=== PATIENT | female | born 1985 | race Caucasian/White ===

== ENCOUNTER 2016-09-26 12:47 | Emergency (ER) ==
[2016-09-26 13:09] VITALS: BP 137/80; TEMP 97.8; BMI 47.4
--- NOTE | 2016-09-26 13:32 | ED.PDOC ---
General ED Provider: Dr. DIYA SUN JR Chief Complaint: Foot Pain/Injury Stated Complaint: fell getting out of hot tub around [place], hurting right foot, just keeps getting worse. now unable to put much pressure on it while walking [End]09/07/16 97.8 108 20 98% 137/80 7/10 Time Seen by Physician: 13:31 Mode of Arrival: Walk-In Information Source: Patient Exam Limitations: No limitations Primary Care Provider: DEDRICK MARTINEZ Nursing and Triage Documentation Reviewed and Agree: No Review of Systems - Review Of Systems Constitutional: Reports: No symptoms Eyes: Reports: No symptoms Ears, Nose, Mouth, Throat: Reports: No symptoms Respiratory: Reports: No symptoms Cardiac: Reports: No symptoms GI: Reports: No symptoms : Reports: No symptoms Musculoskeletal: Reports: Joint pain (right talar tenderness) Skin: Reports: No symptoms Neurological: Reports: No symptoms Endocrine: Reports: No symptoms Hematologic/Lymphatic: Reports: No symptoms All Other Systems: Other Past Medical History - Past Medical History Endocrine: Reports: None Cardiovascular: Reports: None Respiratory: Reports: Asthma Hematological: Reports: None Gastrointestinal: Reports: None Genitourinary: Reports: None Neuro/Psych: Reports: None Musculoskeletal: Reports: None Cancer: Reports: None Last Menstrual Period: 3 weeks ago - Surgical History General Surgical History: Reports: Tubal ligation, Cholecystectomy, Hernia Repair - Family History Family History: Reports: Unknown - Social History Smoking Status: Former smoker Hx Substance Use: No Alcohol Screening: None Physical Exam - Physical Exam Appearance: Well-appearing, Obese Pain Distress: Moderate Neck: Supple Respiratory: Airway patent Musculoskeletal: No calf tenderness (tender over talus medially) Skin: Warm, Dry, Normal color Neurological: Sensation intact, Motor intact, Reflexes intact, Cranial nerves intact, Alert, Oriented Psychiatric: Affect appropriate, Mood appropriate Critical Care Note - Critical Care Note Total Time (mins): 0 Course - Course Orders, Labs, Meds: Orders Category Date Time Status FOOT, RIGHT 3 VIEWS Stat RADS 09/26/16 13:32 Completed Vital Signs: Temp Pulse Resp BP Pulse Ox 09/26/16 12:47 97.8 F 108 H 20 137/80 98 Departure - Departure Time of Disposition: 14:57 Disposition: HOME SELF-CARE Discharge Problem: Injury of foot Instructions: Foot Sprain (ED) Condition: Good Pt referred to PMD for follow-up: Yes Additional Instructions: no weight on right foot for three days take [place] for pain try two then one four times a day only as needed may use crutches recheck PMD next week if still painful would obtain MRI and orthopedic referral Prescriptions: Hydrocodone Bit/Acetaminophen [[place] 5-325] 1 - 2 tab PO Q6HR PRN #12 tablet PRN Reason: pain Allergies/Adverse Reactions: Allergies clindamycin Adverse Reaction (Verified 06/09/14 02:09) demeclocycline [From Declomycin] Adverse Reaction (Verified 09/26/16 12:52) ketorolac tromethamine [From Toradol] Adverse Reaction (Verified 06/09/14 01:46) meperidine HCl [From Demerol] Adverse Reaction (Verified 01/09/14 12:18) Penicillins Adverse Reaction (Verified 04/23/13 08:23) propoxyphene napsylate [From Darvocet-N 100] Adverse Reaction (Unverified 04:37) vancomycin Adverse Reaction (Verified 06/09/14 01:45) Home Medications: Ambulatory Orders Budesonide/Formoterol Fumarate [Symbicort 80-4.5 Mcg Inhaler] 10.2 gm IH BID PRN 02/06/14 Albuterol Sulfate [Proventil Hfa] 2 puff INH Q4H PRN 06/09/14 Hydrocodone Bit/Acetaminophen [[place] 5-325] 1 - 2 tab PO Q6HR PRN #12 tablet 08/31 Naproxen [Naprosyn] 500 mg PO Q12HR PRN #30 tablet 09/26/16
--- NOTE | 2016-09-26 14:23 | DI ---
EXAM: Three views of the right foot. History: Right foot trauma. Findings: No acute fracture or dislocation. No abnormal calcifications or radiopaque foreign earle s. Minimal calcaneal enthesiopathy. Joint spaces are preserved. Impression: No acute osseous abnormality.
== END 2016-09-26 15:14 | disposition home or self-care (01) ==
LOC: ED 12:47
DX: S93.601A Unspecified sprain of right foot, initial encounter (principal); W19.XXXA Unspecified fall, initial encounter
CPT/HCPCS: 99283

== ENCOUNTER 2017-03-25 07:10 | Emergency (ER) ==
[2017-03-25 07:23] VITALS: BP 139/82; TEMP 99; BMI 46.5
[2017-03-25] MEDS ORDERED: ROCEPHIN IM STA (07:45)
[2017-03-25] MEDS ORDERED: LIDOCAINE 1 % AMP 5 ML (SUTURES) IM STA (07:45)
[2017-03-25] MEDS ORDERED: ZOFRAN 4 MG/2 ML IM STA (07:46)
[2017-03-25] MEDS ORDERED: MORPHINE 4 MG/ML SYRINGE IM STA (07:46)
--- NOTE | 2017-03-25 07:50 | ED.PDOC ---
General ED Provider: Dr. IRINEO MITCHELL Chief Complaint: Tooth Problem Stated Complaint: dental pain Time Seen by Physician: 07:30 (seen with may at all times photo submitted ) Mode of Arrival: Walk-In Information Source: Patient Exam Limitations: No limitations Primary Care Provider: DEDRICK MARTINEZ Nursing and Triage Documentation Reviewed and Agree: Yes EENT Complaint Exam - Dental/Oral Complaint/Exam Mechanism of Injury: No known trauma Onset/Duration: woke up this morning with pain and some facial edema right side Symptoms Are: Still present Timing: Constant Initial Severity: Moderate Current Severity: Moderate Character: Reports: Aching, Throbbing Aggravating: Reports: Heat, Cold, Chewing Alleviating: Reports: None Associated Signs and Symptoms: Reports: Swelling. Denies: Discharge, Fever, Foul odor, Foul taste in mouth Related History: Reports: Similar episode Cardiac Risk Factors: Reports: None Dental/Oral Surgical History: Reports: None Tooth Findings: Present: Gross caries, Dental fracture Cervical Lymphadenopathy Present: No Facial Swelling Present: Yes (see photo) Bleeding Present: No Oropharynx Findings: Absent: Clots, Active bleeding Septal Hematoma: No Foreign Body Present: No Dysphagia Present: No Drooling Present: No Asymmetrical Tonsillar Swelling Present: No Uvula Midline: Yes Olivia-tonsillar Fluctuence: No Trismus Present: No Palatal Petechiae Present: No Scarlatinaform Rash Present: No Teeth Picture: 1 - decay , broken advance d Differential Diagnoses: Dental Caries, Fractured Tooth Review of Systems - Review Of Systems Constitutional: Reports: No symptoms Eyes: Reports: No symptoms Ears, Nose, Mouth, Throat: Reports: No symptoms Respiratory: Reports: No symptoms Cardiac: Reports: No symptoms GI: Reports: No symptoms : Reports: No symptoms Musculoskeletal: Reports: No symptoms Skin: Reports: No symptoms Neurological: Reports: No symptoms Endocrine: Reports: No symptoms Hematologic/Lymphatic: Reports: No symptoms All Other Systems: Reviewed and Negative Past Medical History - Past Medical History Endocrine: Reports: None Cardiovascular: Reports: None Respiratory: Reports: Asthma Hematological: Reports: None Gastrointestinal: Reports: None Genitourinary: Reports: None Neuro/Psych: Reports: None Musculoskeletal: Reports: None Cancer: Reports: None Last Menstrual Period: 2 months ago - Surgical History General Surgical History: Reports: Tubal ligation, Cholecystectomy, Hernia Repair - Family History Family History: Reports: Unknown - Social History Smoking Status: Former smoker Hx Substance Use: No Alcohol Screening: None Physical Exam - Physical Exam Appearance: Well-appearing, No pain distress, Well-nourished Eyes: TEDDY, EOMI, Conjunctiva clear ENT: Ears normal, Nose normal, Oropharynx normal Respiratory: Airway patent, Breath sounds clear, Breath sounds equal, Respirations nonlabored Cardiovascular: RRR, Pulses normal, No rub, No murmur GI/: Soft, Nontender, No masses, Bowel sounds normal, No Organomegaly Musculoskeletal: Normal strength, ROM intact, No edema, No calf tenderness Skin: Warm, Dry, Normal color Neurological: Sensation intact, Motor intact, Reflexes intact, Cranial nerves intact, Alert, Oriented Psychiatric: Affect appropriate, Mood appropriate Critical Care Note - Critical Care Note Total Time (mins): 0 Course - Course Orders, Labs, Meds: Orders Category Date Time Status Ceftriaxone Sodium [Rocephin] MEDS 03/25/17 07:45 Stat 1 gm IM ONCE STA Lidocaine HCl/Pf [Lidocaine 1 % Amp 5 ml (Sutures)] MEDS 03/25/17 07:45 Stat 2.1 ml IM ONCE STA Morphine Sulfate [Morphine 4 mg/ml Syringe] MEDS 03/25/17 07:46 Stat 4 mg IM ONCE STA Ondansetron HCl/Pf [Zofran 4 mg/2 ml] MEDS 03/25/17 07:46 Stat 4 mg IM ONCE STA Medications Discontinued Medications Generic Name Dose Route Start Last Admin Trade Name Benny PRN Reason Stop Dose Admin Ceftriaxone Sodium 1 gm 03/25/17 07:45 Rocephin IM 03/25/17 07:46 ONCE STA Lidocaine HCl 2.1 ml 03/25/17 07:45 Lidocaine 1 % Amp 5 Ml (Sutures) IM 03/25/17 07:46 ONCE STA Morphine Sulfate 4 mg 03/25/17 07:46 Morphine 4 Mg/Ml Syringe IM 03/25/17 07:47 ONCE STA Ondansetron HCl 4 mg 03/25/17 07:46 Zofran 4 Mg/2 Ml IM 03/25/17 07:47 ONCE STA Vital Signs: Temp Pulse Resp BP Pulse Ox 03/25/17 07:15 99 F 99 H 20 139/82 98 Departure - Departure Time of Disposition: 07:50 (may was present at all times pt has a list of allergies will contact anthony HAAS to see hich meds can be perscribed ) Disposition: HOME SELF-CARE Discharge Problem: Toothache Instructions: Toothache (ED) Condition: Good Pt referred to PMD for follow-up: No Additional Instructions: Please call your Family Physician as soon as possible to schedule a follow-up appointment. Prescriptions: Hydrocodone/Acetaminophen [[place] 10-325 Tablet] 1 each PO Q8HR #20 tablet Allergies/Adverse Reactions: Allergies clindamycin Adverse Reaction (Verified 03/25/17 07:20) demeclocycline [From Declomycin] Adverse Reaction (Verified 03/25/17 07:20) ketorolac tromethamine [From Toradol] Adverse Reaction (Verified 03/25/17 07:20) meperidine HCl [From Demerol] Adverse Reaction (Verified 03/25/17 07:20) Penicillins Adverse Reaction (Verified 03/25/17 07:20) propoxyphene napsylate [From Darvocet-N 100] Adverse Reaction (Verified 07:20) vancomycin Adverse Reaction (Verified 03/25/17 07:20) Home Medications: Ambulatory Orders Budesonide/Formoterol Fumarate [Symbicort 80-4.5 Mcg Inhaler] 10.2 gm IH BID PRN 02/06/14 Albuterol Sulfate [Proventil Hfa] 2 puff INH Q4H PRN 14 Hydrocodone/Acetaminophen [[place] 10-325 Tablet] 1 each PO Q8HR #20 tablet Disposition Discussed With: Patient
== END 2017-03-25 08:46 | disposition home or self-care (01) ==
LOC: ED 07:10
DX: K08.89 Other specified disorders of teeth and supporting structures (principal); K02.7 Dental root caries; S02.5XXA Fracture of tooth (traumatic), initial encounter for closed fracture; R60.0 Localized edema
CPT/HCPCS: 96372; 99282

== ENCOUNTER 2017-05-21 15:16 | Emergency (ER) ==
[2017-05-21 15:22] VITALS: BP 150/85; TEMP 98.4; BMI 51.5
[2017-05-21 16:11] LABS: BASOPHILS % (AUTO) 0.4 % (0.0-3.0); EOSINOPHILS # (AUTO) 0.1 K/ul (0.0-0.7); EOSINOPHILS % (AUTO) 1.4 % (0.0-7.0); HEMATOCRIT 38.1 % (37.0-47.0); HEMOGLOBIN 12.6 g/dl (12.0-16.0); IMMATURE GRANULOCYTE % (AUTO) 0.4 % (0.0-5.0); LYMPHOCYTES # (AUTO) 2.3 K/uL (0.60-3.4); MEAN CORPUSCULAR HEMOGLOBIN 26.5 pg (27.0-31.0); MEAN CORPUSCULAR HGB CONC 33.1 (31.8-35.4); MEAN CORPUSCULAR VOLUME 80.2 fl (81.0-99.0); MONOCYTES # (AUTO) 0.5 K/uL (0.4-2.0); MONOCYTES % (AUTO) 5.2 (0-10); NEUTROPHILS # (AUTO) 6.1 K/ul (2.0-6.9); NEUTROPHILS % (AUTO) 67.6; PLATELET COUNT 299 10^3/uL (140-440); RED BLOOD COUNT 4.75 10^6/ul (4.20-5.40); WHITE BLOOD COUNT 9.01 K/ul (4.6-10.2)
[2017-05-21 16:30] LABS: SERUM PREGNANCY INTERNAL QC INTERNAL QC VALID
[2017-05-21 16:36] LABS: ALBUMIN 3.3 g/dL (3.4-5.0); ALBUMIN/GLOBULIN RATIO 0.79; BILIRUBIN,TOTAL 0.16 mg/dL (0.00-1.20); BUN/CREATININE RATIO 13.58; CALCIUM 9.8 mg/dL (8.2-10.2); CREATININE 0.81 mg/dL (0.60-1.30); TOTAL PROTEIN 7.5 g/dL (6.4-8.2)
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
--- NOTE | 2017-05-21 17:06 | CT ---
EXAM: CT head without contrast. HISTORY: Headache. Dizziness. Left ear ringing. COMPARISON: 07/08/2015. TECHNIQUE: Multiple axial images of the brain were obtained from the skull base through the vertex without intravenous contrast. FINDINGS: There is no intracranial hemorrhage or extraaxial collection. The bragg-white differentia tion is maintained without evidence for acute large vascular territory infarction. The cortical sul ci and basal cisterns are well visualized. There is no hydrocephalus, mass effect, or midline shift . Small polyp or retention cyst noted in the left maxillary sinus. Otherwise, the paranasal sinuse s and mastoid air cells are clear. The calvarium is intact. IMPRESSION: No acute intracranial abnormality.
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
== END 2017-05-21 17:24 | disposition home or self-care (01) ==
LOC: ED 15:16
DX: R51 Headache (principal); M54.2 Cervicalgia; H92.02 Otalgia, left ear; V89.2XXD Person injured in unspecified motor-vehicle accident, traffic, subsequent encounter
CPT/HCPCS: 36415; 80053; 84703; 85025; 99283